=== PATIENT | male | born 1965 | race Caucasian/White ===

== ENCOUNTER 2016-05-16 06:14 | Day surgery (SDC) | payer OTHER ==
--- NOTE | ~2016-05-16 | OP ---
Record Of Operation [facility] [address] [place] [address] NAME: GISSELLE SANTACRUZ JR : [id number] STATUS : [facility]#: [id number] AGE: 51 ADM/REG DATE : 05/16/16 MR#: [id number] REPORT SERV DATE: 05/23/16 DICTATED BY: JUANY HARTLEY II DATE: 05/23/16 REPORT STATUS : Draft TRANSCRIBED BY: COLLEEN DATE: 05/23/16 DATE OF PROCEDURE: 05/16/2016 PREOPERATIVE DIAGNOSIS: Stenosis. POSTOPERATIVE DIAGNOSIS: Stenosis. PROCEDURE: Lumbar epidural steroid injection. COMPLICATIONS: None. DETAILS OF PROCEDURE: The patient was brought to the procedure room and the patient turned in the prone position, the back was prepped and draped. Under fluoroscopy the needle was placed at L4-L5 and confirmed with Omnipaque. Next, the Depo-Medrol and Marcaine were placed into the epidural space and then the needle was withdrawn. The patient tolerated the procedure well. TARA/COLLEEN Juany Hartley II, M.D. / [id number] CC: Keila Mathew II, M.D.
[~2016-05-16 06:14] MED LIST: ADDERALL20 MG PO; BACDS PO; CIP5 PO; KLONO1 PO; KLONO5; KLONOPIN; MELOXICAM; MOBIC15 MG PO; NORCO1 TAB PO; PRILO PO; PRILOSEC; REQUIP; REQUIP1 PO; SEPTRA DS1 TAB PO; ZYVOXPO PO
[2016-07-17] MEDS ORDERED: ALLEGRA180 PO (09:16)
[2016-07-17] MEDS ORDERED: ISOPTIN SR120 MG PO (09:17)
== END 2016-05-16 23:59 | disposition home health service (06) ==
LOC: SDC 06:14
PROVIDERS: Orthopaedic Surgery
PROC: 3E0R33Z Introduction of Anti-inflammatory into Spinal Canal, Percutaneous Approach (ICD-10-PCS; principal; 2016-05-16 08:15)
DX: M54.16 Radiculopathy, lumbar region (principal); G43.909 Migraine, unspecified, not intractable, without status migrainosus; F98.8 Other specified behavioral and emotional disorders with onset usually occurring in childhood and adolescence; K21.9 Gastro-esophageal reflux disease without esophagitis; Z88.8 Allergy status to other drugs, medicaments and biological substances; J45.909 Unspecified asthma, uncomplicated; Z98.890 Other specified postprocedural states
CPT/HCPCS: J1040; J2250; J3010; Q9967